=== PATIENT | female | born 2000 | race Two or more races ===

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

== ENCOUNTER 2018-01-28 02:18 | Inpatient (IN) | payer OTHER ==
[~2018-01-28] VITALS: Ht 167.6 cm; Wt 83.5 kg
[2018-01-28] MEDS ORDERED: IRON PO (02:52)
== END 2018-01-30 12:56 | DRG 775 ==
LOC: LDR 02:18 → OB/GYN 02:18
PROC: 10E0XZZ Delivery of Products of Conception, External Approach (ICD-10-PCS; principal; 2018-01-28)
PROC: 10907ZC Drainage of Amniotic Fluid, Therapeutic from Products of Conception, Via Natural or Artificial Opening (ICD-10-PCS; 2018-01-28)
PROC: 3E033VJ Introduction of Other Hormone into Peripheral Vein, Percutaneous Approach (ICD-10-PCS; 2018-01-28)
PROC: 4A1HXCZ Monitoring of Products of Conception, Cardiac Rate, External Approach (ICD-10-PCS; 2018-01-28)
DX: O99.824 Streptococcus B carrier state complicating childbirth (principal); Z3A.38 38 weeks gestation of pregnancy; Z37.0 Single live birth

== ENCOUNTER 2019-06-11 05:59 | Inpatient (IN) | payer OTHER ==
[~2019-06-11] VITALS: Ht 165.1 cm; Wt 90.3 kg
[~2019-06-11 05:59] MED LIST changes: +IRON PO
[2019-06-12] MEDS ORDERED: IRON236 MG PO (08:15)
== END 2019-06-13 14:25 | disposition home or self-care (01) | DRG 807 ==
LOC: SURG-SUITE 05:59 → LDR 05:59 → SURG-SUITE 15:25
PROVIDERS: ADMIT Obstetrics & Gynecology
PROC: 10E0XZZ Delivery of Products of Conception, External Approach (ICD-10-PCS; principal; 2019-06-11)
PROC: 4A1HXCZ Monitoring of Products of Conception, Cardiac Rate, External Approach (ICD-10-PCS; 2019-06-11)
DX: O80 Encounter for full-term uncomplicated delivery (principal); Z37.0 Single live birth; Z3A.38 38 weeks gestation of pregnancy

== ENCOUNTER → 2020-01-24 | Outpatient (CLI) | payer OTHER ==
[~2020-01-24] MED LIST changes: +IRON236 MG PO
== END | disposition home or self-care (01) ==
LOC: PRENATAL 14:00
PROVIDERS: ATTEND Obstetrics & Gynecology
DX: O35.3XX1 Maternal care for (suspected) damage to fetus from viral disease in mother, fetus 1 (principal); O35.0XX1 Maternal care for (suspected) central nervous system malformation in fetus, fetus 1

== ENCOUNTER 2020-05-31 23:44 | Inpatient (IN) | payer OTHER ==
[~2020-05-31] VITALS: Ht 165.1 cm; Wt 89.8 kg
== END 2020-06-03 15:39 | disposition home or self-care (01) | DRG 776 ==
LOC: LDR 23:44 → SURG-SUITE 23:44
PROVIDERS: ADMIT Obstetrics & Gynecology; ATTEND Obstetrics & Gynecology
DX: Z39.0 Encounter for care and examination of mother immediately after delivery (principal); K59.09 Other constipation; Z20.828 Contact with and (suspected) exposure to other viral communicable diseases

== ENCOUNTER 2021-12-21 16:54 | Emergency (ER) | payer OTHER ==
[~2021-12-21] VITALS: Ht 177.8 cm; Wt 93.4 kg
[2021-12-21] MEDS ORDERED: SYNTHROID125 MCG PO (17:48)
== END 2021-12-21 22:39 | disposition home or self-care (01) ==
LOC: ER 16:54
DX: R07.89 Other chest pain (principal)